=== PATIENT | male | born 1970 | race Caucasian/White ===

== ENCOUNTER → 2017-05-31 | Outpatient (CLI) | payer MEDICAID ==
[~2017-05-31] MED LIST: AMBR10TA3 PO; MULT-516 PO; SILD20TA PO; SPIR25TA PO
== END | disposition home or self-care (01) ==
LOC: CFH 11:19
PROVIDERS: ATTEND Internal Medicine Cardiovascular Disease
DX: I07.1 Rheumatic tricuspid insufficiency (principal); I27.0 Primary pulmonary hypertension
CPT/HCPCS: 93306

== ENCOUNTER 2017-07-09 06:30 | Emergency (ER) | payer MEDICAID ==
[~2017-07-09] VITALS: Ht 185.4 cm; Wt 96.0 kg
[2017-07-09] MEDS ORDERED: LORazepam 2 MG/ML, 1ML ONE ×2 (06:47→09:20)
[2017-07-09] MEDS ORDERED: TREP2.5T PO (06:54)
[2017-07-09] MEDS ORDERED: SODIUM CHLORIDE FLUSH 10ML SYR IVF ONE (07:00)
[2017-07-09] MEDS ORDERED: LORazepam 2 MG/ML, 1ML IVPush ONE ×2 (07:00→08:30)
[2017-07-09 07:51] LABS: ABG COLLECTION SITE LEFT RADIAL; COLLATERAL CIRCULATION TESTING NORMAL
[2017-07-09 07:57] LABS: BLOOD UREA NITROGEN 35 mg/dL (7-18)
[2017-07-09] MEDS ORDERED: ETOMIDATE 20 MG/10 ML ONE ×2 (08:00→09:35)
[2017-07-09] MEDS ORDERED: EPINEPHRINE SYRINGE 0.1 MG/ML, 10ML ONE ×2 (08:00→09:35)
[2017-07-09] MEDS ORDERED: SUCCINYLCHOLINE 20 MG/ML, 10ML ONE (08:00)
[2017-07-09 08:02] LABS: ASPARTATE AMINO TRANSFERASE 101 U/L (15-37)
[2017-07-09 08:05] LABS: IS PT STATUS REG ER OR PRE ER? YES
[2017-07-09 08:10] VITALS: BP 110/78
[2017-07-09 08:10] LABS: HEMATOCRIT 52.9 % (39.2-51.8); HEMOGLOBIN 17.7 g/dL (13.7-18.0); WHITE BLOOD COUNT 12.5 x10^3/uL (3.4-10)
[2017-07-09] MEDS ORDERED: TREPROSTINIL DIOLAMINE HOMEMEDPO SCH (09:00)
[2017-07-09] MEDS ORDERED: SODIUM CHLORIDE FLUSH 10ML SYR IVF PRN (09:00)
[2017-07-09] MEDS ORDERED: SILDENAFIL 20 MG TABLET PO SCH (09:00)
[2017-07-09] MEDS ORDERED: AMBRISENTAN 10 MG HOMEMEDPO SCH (09:00)
[2017-07-09] MEDS ORDERED: ETOMIDATE 20 MG/10 ML IV ONE (09:30)
[2017-07-09] MEDS ORDERED: SUCCINYLCHOLINE 20 MG/ML, 10ML IVPush ONE (09:30)
[2017-07-09] MEDS ORDERED: CODE BLUE RESPONSE XX ONE (09:35)
[2017-07-09] MEDS ORDERED: SODIUM BICARB 8.4%, 50ML SYRINGE ONE (09:35)
== END 2017-07-09 12:31 | disposition expired ==
LOC: ED 07:04 → UNDOADMIN 08:48 → EDIP 08:48 → ED 12:31
DX: R06.00 Dyspnea, unspecified (principal); D69.3 Immune thrombocytopenic purpura; I27.0 Primary pulmonary hypertension; N17.9 Acute kidney failure, unspecified; F15.10 Other stimulant abuse, uncomplicated; Z72.9 Problem related to lifestyle, unspecified; F17.210 Nicotine dependence, cigarettes, uncomplicated; I10 Essential (primary) hypertension
CPT/HCPCS: 31500; 36415; 36600; 71010; 80053; 82803; 83605; 83735; 83880; 84484; 85025; 85610; 85730; 92950; 93005; 96374; 96375; 96376; 99291; J0330; J2060